=== PATIENT | female | born 1960 | race Caucasian/White ===

== ENCOUNTER 2018-06-10 17:07 | Inpatient (IN) | payer BC ==
[2018-06-10] MEDS ORDERED: LORazepam 2 MG/ML INJ IVP ONE (17:29)
--- NOTE | 2018-06-10 17:32 | EDPHY ---
General - History Smoking Status: Never smoked Time Seen by Provider: 06/10/18 17:29 Narrative: CHIEF COMPLAINT: Shortness of breath, chest pain and panic attacks HISTORY OF PRESENT ILLNESS: Patient presents private vehicle with her spouse with complaints of shortness of breath, chest pressure, panic attacks. Shortness of breath started when they landed here on Monday from a flight from [place]. She felt an increase in some baseline shortness of breath. She associates this with some chest pressure this worse with exertion at times. Other times it independent of exertion. The pain can radiate through to the back. It is described as a pressure and becomes worse with inspiration. No pressure at this time. She does have shortness of breath at this time. This seems to worsen with ambulation. She reports that she can walk no more than a block before having to slow down. She has no headache. She has no erythema edema or pain of the extremities. She has been feeling very anxious and "having panic attacks." She is not certain if these are related. She has no previous coronary artery disease does have hypertension on no medication. No other associated complaints or modifying factors REVIEW OF SYSTEMS: 10 systems were reviewed and negative with the exception of the elements mentioned in the history of present illness. PCP: Located [place] [facility]: [facility] in [place] PAST MEDICAL HISTORY: "Vestibular disease," hypertension PAST SURGICAL HISTORY: Hysterectomy oophorectomy, C-sections x2, breast biopsy SOCIAL HISTORY: Occasional smoker high school. No drug or alcohol use. Lives independently with her spouse and [place]. FAMILY HISTORY: Noncontributory EXAMINATION: General Appearance: Alert, no distress. Tearful but consolable. Pacing in the room. Head: normocephalic, atraumatic Eyes: Pupils equal and round, no conjunctival pallor or injection ENT, Mouth: Mucous membranes moist Neck: Normal inspection, supple, non-tender Respiratory: Lungs are clear to auscultation. No wheeze, rhonchi or crackles Cardiovascular: Tachycardic rate. Regular rhythm. No Gastrointestinal: Abdomen is soft and nontender Back: non-tender, no bony abnormalities Neurological: GCS 15. A&O, nonfocal, normal gait Skin: Warm and dry, no rash Extremities: Nontender, no pedal edema Psychiatric: Anxious and fidgeting. DIFFERENTIAL DIAGNOSES: Including but not limited to anxiety, shortness of breath, pneumonia, PE, pleurisy, pleural effusion, HAPE MDM: 5:30 p.m. Shortness of breath, chest pressure and feeling anxious at times. Symptoms seem to be independent of 1 another at times, and anxiety seems to be compound by her symptoms as well. She has some pressure and shortness of breath at this time. She is intermittently tachycardic, but she is not hypoxemic. She is in no acute distress. She is tearful but consolable. I have ordered cardiac workup and IV Ativan. I have also ordered a D-dimer given that she has recently flown here and does have some chest pressure, pleuritic pain and slightly tachycardic. Cannot rule her out by perc criteria, but I feel like PE is highly unlikely. She is in no acute distress. 6:00 p.m. Basic metabolic panel is within normal limits. Point of care troponin negative. EKG obtained and reviewed by Dr. Livingston. Chest x-ray and other laboratory studies pending. 6:05 p.m. Notified by RN. Hemoglobin is low, critical value of 5.4. Hematocrit is 19. Patient has been re-evaluated. Discussed further HPI with her. She denies any blood bright red blood in stools, dark tarry stools, bleeding her urine or bleeding from any source. She denies taking anticoagulants. She is status post hysterectomy. I performed a digital rectal exam and have sent fecal sample for occult testing. I have ordered packed red blood cells. Dr. Livingston notified. 6:30 p.m. Patient does have a positive Hemoccult test. 6:46 p.m. Case discussed with Dr. Barrios. She will admit the patient to her service. She is admitted stable condition. Dr. Barrios request an observation status, med surge bed. Type and screen pending. SUPERVISION: Patient was evaluated and examined in conjunction with my secondary supervising physician as documented. We have both examined the patient. EKG interpretation: Dr. Livingston CONSULTATION: Hospitalist admission (Humberto Pfeiffer) Medical Decision Making: Independent physician evaluation: I evaluated and participated in the management of the patient. I also evaluated the patient independently. My co-signature indicates that I have reviewed this chart and I agree with the findings and plan of care as documented. My personal H&P findings include: The patient presents the ED with complaints of exertional dyspnea and fatigue. [place] The patient denies any chest pain. She denies any fever, cough or congestion. She denies any symptoms of dysuria. General Appearance: Alert, no distress Eyes: Pupils equal and round no pallor or injection ENT, Mouth: Mucous membranes moist Respiratory: There are no retractions, lungs are clear to auscultation Cardiovascular: Regular rate and rhythm Gastrointestinal: Abdomen is soft and nontender, no masses, bowel sounds normal Neurological: A&O, normal motor function, normal sensory exam, normal cranial nerves Skin: Warm and dry, no rashes Musculoskeletal: Neck is supple nontender Extremities: symmetrical, full range of motion Psychiatric: Patient is oriented X 3, there is no agitation ED course: Database CBC demonstrates a sinus rhythm rate 97, nonspecific T-wave inversions are noted. Troponin is normal. Patient is hematocrit came back at 19. Patient denies any symptoms of melena however she is Hemoccult positive. Patient will be started on IV Protonix and transfused with 2 units of packed red blood cells. Consultation is made with the hospitalist service for admission. (Zachery Livingston) - Diagnostics Imaging Results: Imaging Impressions Chest X-Ray 06/10/18 17:29 Impression: Negative portable chest. Probable retrocardiac hiatal hernia. - Objective Vital Signs: Initial Vital Signs Temperature (C) 98.4 F 06/10/18 17:11 Heart Rate 109 H 06/10/18 17:11 Respiratory Rate 20 06/10/18 17:11 Blood Pressure 181/93 H 06/10/18 17:11 O2 Sat (%) 98 06/10/18 17:11 O2 Delivery Mode Room Air Allergies/Adverse Reactions: No Known Allergies Allergy (Unverified 06/10/18 17:10) Home Medications: Medication Instructions Recorded Irbesartan/Hydrochlorothiazide 2 tab PO DAILY 06/10/18 [Avalide 300-12.5 mg Tablet] Meclizine HCl [Meclizine HCl 12.5 12.5 mg PO DAILY PRN 06/10/18 mg (*)] diphenhydrAMINE [Benadryl 25 MG 25 mg PO DAILY PRN 06/10/18 (*)] Laboratory Results: Laboratory Results 06/10/18 17:45 06/10/18 17:45 06/10/18 06/10/18 06/10/18 18:30 18:15 17:48 WBC RBC Hgb Hct MCV MCH MCHC RDW Plt Count MPV Neut % (Auto) Lymph % (Auto) [place] % (Auto) Eos % (Auto) Baso % (Auto) Nucleat RBC Rel Count Absolute Neuts (auto) Absolute Lymphs (auto) Absolute Monos (auto) Absolute Eos (auto) Absolute Basos (auto) Absolute Nucleated RBC Immature Gran % Immature Gran # Platelet Estimate Polychromasia Hypochromasia Microcytic Cells Elliptocytes Smear Review By Sodium Potassium Chloride Carbon Dioxide Anion Gap BUN Creatinine Estimated GFR Glucose Calcium POC Troponin I 0.01 ng/mL ng/mL (0.00-0.08) NT-Pro-B Natriuret Pep Stool Occult Bld Scrn POSITIVE H (NEGATIVE) Patient ABO/Rh A POSITIVE Antibody Screen NEGATIVE Crossmatch IS Only See Detail 06/10/18 06/10/18 17:45 17:45 WBC 8.76 10^3/uL 10^3/uL (3.80-9.50) RBC 2.69 10^6/uL L 10^6/uL (4.18-5.33) Hgb 5.4 g/dL L* g/dL (12.6-16.3) Hct 19.1 % L % (38.0-47.0) MCV 71.0 fL L fL (81.5-99.8) MCH 20.1 pg L pg (27.9-34.1) MCHC 28.3 g/dL L g/dL (32.4-36.7) RDW 17.3 % H % (11.5-15.2) Plt Count 334 10^3/uL 10^3/uL (150-400) MPV 9.8 fL fL (8.7-11.7) Neut % (Auto) 72.1 % % (39.3-74.2) Lymph % (Auto) 22.0 % % (15.0-45.0) [place] % (Auto) 4.2 % L % (4.5-13.0) Eos % (Auto) 0.7 % % (0.6-7.6) Baso % (Auto) 0.5 % % (0.3-1.7) Nucleat RBC Rel Count 0.3 % H % (0.0-0.2) Absolute Neuts (auto) 6.32 10^3/uL 10^3/uL (1.70-6.50) Absolute Lymphs (auto) 1.93 10^3/uL 10^3/uL (1.00-3.00) Absolute Monos (auto) 0.37 10^3/uL 10^3/uL (0.30-0.80) Absolute Eos (auto) 0.06 10^3/uL 10^3/uL (0.03-0.40) Absolute Basos (auto) 0.04 10^3/uL 10^3/uL (0.02-0.10) Absolute Nucleated RBC 0.03 10^3/uL H 10^3/uL (0-0.01) Immature Gran % 0.5 % % (0.0-1.1) Immature Gran # 0.04 10^3/uL 10^3/uL (0.00-0.10) Platelet Estimate ADEQUATE (ADEQ) Polychromasia 2+ H Hypochromasia 3+ H Microcytic Cells 2+ H Elliptocytes 1+ H Smear Review By Pending Sodium 140 mEq/L mEq/L (135-145) Potassium 4.0 mEq/L mEq/L (3.3-5.0) Chloride 105 mEq/L mEq/L (97-110) Carbon Dioxide 25 mEq/l mEq/l (22-31) Anion Gap 10 mEq/L mEq/L (6-14) BUN 14 mg/dL mg/dL (7-23) Creatinine 0.7 mg/dL mg/dL (0.6-1.0) Estimated GFR > 60 Glucose 132 mg/dL H mg/dL (70-100) Calcium 9.1 mg/dL mg/dL (8.5-10.4) POC Troponin I NT-Pro-B Natriuret Pep 255 pg/mL H pg/mL (0-125) Stool Occult Bld Scrn Patient ABO/Rh Antibody Screen Crossmatch IS Only Medications Given: Discontinued Medications Sodium Chloride (Ns) 1,000 mls @ 0 mls/hr IV EDNOW ONE; Wide Open PRN Reason: Protocol Stop: 06/10/18 17:38 Last Admin: 06/10/18 17:41 Dose: 1,000 mls Lorazepam (Ativan Injection) 1 mg IVP EDNOW ONE Stop: 06/10/18 17:30 Last Admin: 06/10/18 17:42 Dose: 1 mg Point of Care Test Results: Chemistry 06/10/18 17:48 POC Troponin I 0.01 ng/mL ng/mL (0.00-0.08) Departure - Departure Disposition: [facility] Inpatient Acute Clinical Impression: Anemia Qualifiers: Anemia type: unspecified type Qualified Code(s): D64.9 - Anemia, unspecified GI bleed Qualifiers: GI bleed type/associated pathology: unspecified gastrointestinal hemorrhage type Qualified Code(s): K92.2 - Gastrointestinal hemorrhage, unspecified Condition: Good Referrals: NONE *PRIMARY CARE P,. [Primary Care Provider] - As per Instructions
[2018-06-10] MEDS ORDERED: NS 1,000 ML IV ONE (17:37)
[2018-06-10 18:07] LABS: PLATELET COUNT 334 10^3/uL (150-400)
--- NOTE | 2018-06-10 18:36 | CPEKG ---
Test Reason : OPEN Blood Pressure : / mmHG Vent. Rate : 097 BPM Atrial Rate : 098 BPM P-R Int : 154 ms QRS Dur : 095 ms QT Int : 373 ms P-R-T Axes : 021 -02 -15 degrees QTc Int : 474 ms Sinus rhythm LVH with secondary repolarization abnormality Confirmed by Zachery Livingston ([id number]) on 06/10/2018 6:35:32 PM Referred By: Confirmed By:Zachery Livingston
--- NOTE | 2018-06-10 20:24 | PDGENHP ---
History and Physical - Chief Complaint SOB - History of Present Illness 58 yo female with recent h/o dizziness, diagnosed with vestibular neuritis presents to ED with SOB and fatigue. She also endorses some vague chest pressure. She recently flew here from [place]. As soon as she landed in [place], she began to feel SOB. She also reports fatigue and dizziness. She has recently been prescribed Meclizine for this, no labs were done. She denies N/V , abdominal pain, melena or BRBPR. No weight loss, she actually complains of weight gain. No changes in her bowel habits. No family h/o GI malignancy. She recently took a cologuard stool test and it was negative. In the ED, her hgb was 5.4. She is receiving 2 units of prbc's and is admitted to the hospital for further management. History Information - Allergies/Home Medication List Allergies/Adverse Reactions: No Known Allergies Allergy (Unverified 06/10/18 17:10) Home Medications: Irbesartan/Hydrochlorothiazide [Avalide 150-12.5 mg Tablet] 2 tab PO DAILY 06/10 [Last Taken 06/10/18 08:00] Meclizine HCl [Meclizine HCl 12.5 mg (*)] 12.5 mg PO DAILY PRN 06/10/18 [Last Taken 06/10/18 07:00] diphenhydrAMINE [Benadryl 25 MG (*)] 25 mg PO DAILY PRN 06/10/18 [Last Taken 14:00] I have personally reviewed and updated: family history, medical history, social history, surgical history - Past Medical History Additional medical history: gestational diabetes - Surgical History Reports: hysterectomy - Family History Positive for: diabetes type II, CAD - Social History Smoking Status: Never smoked Alcohol Use: Occasionally Drug Use: None Additional social history: , at bedside. Visiting here from [place]. Review of Systems Review of Systems: ROS: 10pt was reviewed & negative except for what was stated in HPI & below Physical Exam Physical Exam: Temp Pulse Resp BP Pulse Ox 37.0 C 94 16 162/80 H 99 06/10/18 19:42 06/10/18 19:42 06/10/18 19:42 06/10/18 19:42 06/10/18 19:47 O2 (L/minute) 1 Constitutional: no apparent distress Eyes: PERRL Ears, Nose, Mouth, Throat: moist mucous membranes Cardiovascular: regular rate and rhythym, systolic murmur Respiratory: no respiratory distress, clear to auscultation Gastrointestinal: normoactive bowel sounds, soft, non-tender abdomen Skin: warm Musculoskeletal: full muscle strength Neurologic: AAOx3 Lab Data & Imaging Review 06/10/18 17:45 06/10/18 17:45 WBC 8.76 10^3/uL (3.80-9.50) 06/10/18 17:45 RBC 2.69 10^6/uL (4.18-5.33) L 06/10/18 17:45 Hgb 5.4 g/dL (12.6-16.3) L* 06/10/18 17:45 Hct 19.1 % (38.0-47.0) L 06/10/18 17:45 MCV 71.0 fL (81.5-99.8) L 06/10/18 17:45 MCH 20.1 pg (27.9-34.1) L 06/10/18 17:45 MCHC 28.3 g/dL (32.4-36.7) L 06/10/18 17:45 RDW 17.3 % (11.5-15.2) H 06/10/18 17:45 Plt Count 334 10^3/uL (150-400) 06/10/18 17:45 MPV 9.8 fL (8.7-11.7) 06/10/18 17:45 Neut % (Auto) 72.1 % (39.3-74.2) 06/10/18 17:45 Lymph % (Auto) 22.0 % (15.0-45.0) 06/10/18 17:45 [place] % (Auto) 4.2 % (4.5-13.0) L 06/10/18 17:45 Eos % (Auto) 0.7 % (0.6-7.6) 06/10/18 17:45 Baso % (Auto) 0.5 % (0.3-1.7) 06/10/18 17:45 Nucleat RBC Rel Count 0.3 % (0.0-0.2) H 06/10/18 17:45 Absolute Neuts (auto) 6.32 10^3/uL (1.70-6.50) 06/10/18 17:45 Absolute Lymphs (auto) 1.93 10^3/uL (1.00-3.00) 06/10/18 17:45 Absolute Monos (auto) 0.37 10^3/uL (0.30-0.80) 06/10/18 17:45 Absolute Eos (auto) 0.06 10^3/uL (0.03-0.40) 06/10/18 17:45 Absolute Basos (auto) 0.04 10^3/uL (0.02-0.10) 06/10/18 17:45 Absolute Nucleated RBC 0.03 10^3/uL (0-0.01) H 06/10/18 17:45 Immature Gran % 0.5 % (0.0-1.1) 06/10/18 17:45 Immature Gran # 0.04 10^3/uL (0.00-0.10) 06/10/18 17:45 Platelet Estimate ADEQUATE (ADEQ) 06/10/18 17:45 Polychromasia 2+ H 06/10/18 17:45 Hypochromasia 3+ H 06/10/18 17:45 Microcytic Cells 2+ H 06/10/18 17:45 Elliptocytes 1+ H 06/10/18 17:45 Sodium 140 mEq/L (135-145) 06/10/18 17:45 Potassium 4.0 mEq/L (3.3-5.0) 06/10/18 17:45 Chloride 105 mEq/L (97-110) 06/10/18 17:45 Carbon Dioxide 25 mEq/l (22-31) 06/10/18 17:45 Anion Gap 10 mEq/L (6-14) 06/10/18 17:45 BUN 14 mg/dL (7-23) 06/10/18 17:45 Creatinine 0.7 mg/dL (0.6-1.0) 06/10/18 17:45 Estimated GFR > 60 06/10/18 17:45 Glucose 132 mg/dL (70-100) H 06/10/18 17:45 Calcium 9.1 mg/dL (8.5-10.4) 06/10/18 17:45 POC Troponin I 0.01 ng/mL (0.00-0.08) 06/10/18 17:48 NT-Pro-B Natriuret Pep 255 pg/mL (0-125) H 06/10/18 17:45 Stool Occult Bld Scrn POSITIVE (NEGATIVE) H 06/10/18 18:15 Patient ABO/Rh A POSITIVE 06/10/18 18:30 Antibody Screen NEGATIVE 06/10/18 18:30 Crossmatch IS Only See Detail 06/10/18 18:30 Visualized and Interpreted Chest x-ray results: Yes Chest X-Ray results: no infiltrate Visualized and Interpreted EKG results: Yes EKG Interpretation: Positive for: normal sinsus rhythm Assessment & Plan Assessment: Iron deficiency anemia - Hemodynamically stable, though mildly tachycardic. No e/o active bleeding. No abdominal pain. Had recent neg cologuard test, but heme positive here. CXR reviewed, possible hiatal hernia, could be contributory. -2 units prbc's tonight, recheck h&h in am -will give IV iron load -PPI -needs egd/colonoscopy, discussed with GI. Since she has no symptoms of active GI bleed and this seems chronic, could get scoped back in [place] if remains stable and responds appropriately to transfusion. If there is e/o bleeding, Dr. Vega aware of case. SOB - suspect related to above. EKG non-ischemic. Trop neg. No hypoxemia and no pulmonary abnormalities on CXR. -trend trop Heart murmur - again, possibly related to anemia -check echo Hypertension - cont ARB/HCTZ Full code Dispo - obs, may be candidate for dc home in am if hgb corrects appropriately and remains hemodynamically stable with no e/o active bleeding. Needs close outpt f/u in [place] for EGD/C-scope
[2018-06-10] MEDS: PANTOPRAZOLE SODIUM 40 MG TAB PO SCH (21:16)
[2018-06-10] MEDS: LORazepam 0.5 MG TAB PO PRN (21:16)
[2018-06-11] MEDS: LORazepam 0.5 MG TAB PO PRN (06:04)
[2018-06-11] MEDS ORDERED: SODIUM FERRIC GLUCONAT/SUCROSE 125 MG in NS 100 ML IV ONE (08:00)
[2018-06-11] MEDS ORDERED: IRBESARTAN PO SCH (09:00)
[2018-06-11] MEDS ORDERED: HYDROCHLOROTHIAZIDE PO SCH (09:00)
[2018-06-11] MEDS ORDERED: [UNRECOGNIZED DRUG - OTHER] PO SCH (09:00)
[2018-06-11] MEDS: HYDROCHLOROTHIAZIDE 25 MG TAB PO SCH (09:03)
[2018-06-11] MEDS: PANTOPRAZOLE SODIUM 40 MG TAB PO SCH (09:03)
[2018-06-11] MEDS ORDERED: DIAZEPAM 5 MG/ML 1 ML SYR IVP PRN (10:13)
[2018-06-11] MEDS: IRBESARTAN 150 MG TAB PO SCH (10:45)
[2018-06-11] MEDS: LORazepam 2 MG/ML INJ IVP PRN ×3 (10:45→22:18)
[2018-06-11] MEDS ORDERED: PEG 3350/NA SULF,BICARB,CL/KCL (GAVILYTE-G) 4000 ML BTL PO ONE (13:35)
--- NOTE | 2018-06-11 13:54 | GCON ---
REFERRING PHYSICIAN: Marbella Barrios MD CHIEF COMPLAINT: For iron deficiency. Dear Dr. Barrios: Thank you very kindly for asking me to evaluate the patient in consultation for a chief complaint of iron-deficiency anemia. She presented to the ER after traveling from [place] to visit her daugh ter in [place] because she was very fatigued and short of breath. This has been worsening over the last year, but being in [place] at altitudes seemed to make this significantly worse. She tried andrew [employer] golf with her yesterday and was unable to complete it because she was so tired. Upon ad mission, she was noted to be profoundly anemic, with a hematocrit of 19.1 and an MCV of 71. She was also noted to be Hemoccult positive on a stool study. The patient denies any abdominal pain, nausea, vomiting, hematemesis, change in bowel habits or blood in her stool. She denies constipation or diarrhea. She has not had a documentation of a previous a nemia in her lifetime. There is no family history of anemia. She has been unaware of any vaginal bl eeding and has had a previous hysterectomy. I am asked to assist with further evaluation and managem ent. PAST MEDICAL HISTORY: Significant for hypertension, recent possible vertigo. PAST SURGICAL HISTORY: Two C sections and a hysterectomy, as well as a breast biopsy, turning out to be a benign lesion. FAMILY HISTORY: Negative for anemia or colon cancer. No history of stomach cancer. No history of p eptic ulcer disease. MEDICATIONS: On admission were meclizine, Benadryl, and irbesartan/hydrochlorothiazide. ALLERGIES: None known. 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 She is , has 2 c hildren, who are healthy. She lives in [place] and was vacationing in [place]. REVIEW OF SYSTEMS: GENERAL: She has felt somewhat fatigued and describes general malaise. HEENT: Has been dizzy. No headaches. No visual disturbances. No rhinorrhea. No epistaxis. No sore throa t. PULMONARY: Shortness of breath with exertion. She feels better at rest and better with oxygen. No cough. No chest pain. CARDIOVASCULAR: Denies palpitations or syncope. GI: Intermittent solid food dysphagia. No heartburn. No nausea, vomiting, hematemesis, melena, hematochezia, diarrhea, co nstipation, or abdominal pain. RHEUMATOLOGIC: No joint pain, swelling, or deformity. ENDOCRINE: N o heat or cold intolerance. HEMATOLOGIC: No bruising or epistaxis. LYMPH: No adenopathy noted. D ERMATOLOGIC: No jaundice, rash, or bruising. PSYCHIATRIC: She has been noting some palpitations th at she has been attributing to anxiety and says she has been having panic attacks intermittently. PHYSICAL EXAM: VITAL SIGNS: Blood pressure is 150/76. Heart rate is 83. Respirations are 16. Oxy genation is 95% on 1 L nasal cannula. Temperature is 36.6. GENERAL: Pale female, in no acute distr ess. HEENT: Normocephalic, atraumatic. Oropharynx clear. Neck supple. No adenopathy. No oral th salazar. No scleral icterus. PULMONARY: Clear to auscultation bilaterally. CARDIOVASCULAR: Regular rate and rhythm, without murmur, rub, or gallop. GI: Abdomen is soft, nontender, nondistended. Abd omen is slightly obese. No organomegaly. No bruit. No tenderness, rebound, or guarding. No disten tion. RHEUMATOLOGIC: No joint pain, swelling, or deformity. DERMATOLOGIC: No rash or jaundice. S KIN: Pale. NEUROLOGIC: Alert to person, place, and time. Cranial nerves normal. Motor nonfocal. LABORATORY DATA: Database includes the following admission laboratories: White blood count is 8.7. Hematocrit is 19.1 with a hemoglobin of 5.4. Platelets are 334. After transfusion, her hematocrit i s 23.7. Sodium 140, potassium 4.0, chloride 105, bicarbonate 25. BUN is 14, creatinine 0.7, calcium 9.1. Iron is 21, with a ferritin of 3.8. Percent saturation is 4. TIBC is 558. Total bilirubin 0 .4. TSH is 2.1. Troponin is less than 0.012 on 2 occasions. Lactate is 552. Stool is positive for occult blood. IMPRESSION: 1. Symptomatic iron-deficiency anemia. 2. Fatigue. 3. Shortness of breath with dyspnea on exertion. 4. Stool is positive for occult blood. RECOMMENDATIONS: 1. Upper endoscopy with small-bowel biopsies. 2. [facility] bowel prep with colonoscopy tomorrow. 3. Transfuse to obtain a hematocrit greater than 25. 4. I have spoken with Christin Dillard, who is covering for the hospital service today regarding the car e plan, and she is in agreement. 5. Further recommendations to follow her endoscopy and colonoscopy. /[id number]/MODL
--- NOTE | 2018-06-11 13:56 | ASMTCMCOM ---
CM Note CM Note Notes: Pts case discussed w/ GONZALEZ Benz regarding d/c POC. Pt is a 58 y/o female admitted for anemia. Pt received 2 units of blood and pt has been given iron. Pt may have a GI work up. No therapies ordered at this time. Pt will d/c independent when medically stable. CM available for changes. Plan: Independent Date Signed: 06/11/2018 01:55 PM Electronically Signed By:TANNER Vigil
--- NOTE | 2018-06-11 14:53 | ECHO ---
[email or web address] [address] [address] Main: [phone] Fax: Transthoracic Echocardiogram Name: TRACY SIMMONS MR#: [id number] Study Date: 06/11/2018 Study Time: 09:44 AM Date of : 1960 Age: 58 year(s) Height: 162.6 cm (64 in.) Weight: 88.45 kg (195 lb.) BSA: 1.94 m2 Gender: Female Examination: Echo Indication: heart murmur Image Quality: Adequate Contrast: Requested by: Marbella Barrios BP: 165 mmHg/84 mmHg Heart Rate: Rhythm: Indication: heart murmur Procedure Staff Inspector Watch Parts: Melody Arcos [facility] Reading Physician: Gentry Minaya MD Requesting Provider: Conclusions: Mild concentric LV hypertrophy. Normal global systolic LV function. EF is 60 %. Mild mitral valve regurgitation is present. Trivial to mild tricuspid valve regurgitation. Right ventricular systolic pressure measures 33mmHg. Measurements: Chambers Valvular Assessment AV/MV Valvular Assessment TV/PV Normal Normal Normal Name Value Range Name Value Range Name Value Range Ao Tamara (MM): 3.0 cm (2.2 cm-3.7 AV Vmax: 1.79 m/s (1 m/s-1.7 TR Vmax: 2.40 mm/s ( - ) cm) m/s) TR PGmax: 23 mmHg ( - ) IVSd (2D): 1.2 cm (0.6 cm-1.1 AV maxP mmHg ( - ) syst. PAP: 33 mmHg ( - ) cm) LVOT Vmax: 0.76 m/s (0.7 m/s-1.1 PV Vmax: 1.28 m/s (0.6 m/s-0.9 LVDd (2D): 5.0 cm (3.9 cm-5.3 m/s) m/s) cm) AMANDA (Vmax): 1.3 cm2 ( - ) PV PGmax: 7 mmHg ( - ) LVDs (2D): 3.3 cm (2.1 cm-4 MV E Vmax: 0.92 m/s ( - ) cm) MV A Vmax: 1.10 m/s ( - ) LVPWd (2D): 1.0 cm ( - ) MV E/A: 0.84 ( - ) LVOTd 2.0 cm 2.0 cm mm LVEF (BP): 60 % (>=55 %) RVDd(2D): 3.3 cm (1.9 cm-3.8 cmmm) Continued Measurements: Chambers Valvular Assessment AV/MV Valvular Assessment TV/PV Name Value Name Value Name Value LADs Lon.9 cm MV DecTime: 127 m/s CVP (est.): 10 mmHg Patient: TRACY SIMMONS Study Date: 06/11/2018 Page 1 of 2 09:44 AM LA Area: 25.4 cm2 MV E' Septal: 0.06 m/s LA Volume: 81 ml MV E/E' Septal: 14.40 LA Volume Index: 41.8 ml/m2 MV E/E' Lateral: 10.80 TAPSE: 2.5 cm RA Area: 14.9 cm2 Additional Vessels Name Value Ao Ascendin.9 cm Findings: Left Ventricle: Normal size left ventricle. Mild concentric LV hypertrophy. Normal global systolic LV function. EF is 60 %. No regional wall motion abnormality. Normal diastolic LV function. Right Ventricle: Normal size right ventricle. Normal RV function. Left Atrium: The left atrium is mildly dilated. Right Atrium: The right atrium is normal in size. Mitral Valve: There is mild thickening of the mitral valve leaflets. Mild mitral valve regurgitation is present. No mitral stenosis is present. Aortic Valve: The aortic valve is tri-leaflet and functions normally. There is no aortic valve regurgitation. No aortic valve stenosis is present. Tricuspid Valve: The tricuspid valve is normal in appearance and function. Trivial to mild tricuspid valve regurgitation. Right ventricular systolic pressure measures 33mmHg. The pulmonary artery pressure is normal. Pulmonic Valve: Pulmonary valve not well visualized. There is no pulmonic regurgitation seen. Aorta: Normal size aortic root measuring 3.0 cm. Normal size ascending aorta measuring 2.9 cm. IVC: The IVC is dilated. There is greater mohan 50% respiratory excursion. Pericardium: No pericardial effusion. (No Signature Object) Patient: TRACY SIMMONS Study Date: 06/11/2018 Page 2 of 2 09:44 AM [id number]
[2018-06-11] MEDS ORDERED: PEG 3350/NA SULF,BICARB,CL/KCL (GAVILYTE-G) 4000 ML BTL PO SCH (18:00)
--- NOTE | 2018-06-11 21:33 | HOSPPROG ---
Hospitalist Progress Note Assessment/Plan: 58y female with c/o fatigue and SOB. First encounter, chart reviewed. D/W Dr Vega. #Iron deficiency anemia - Hemodynamically stable - No e/o active bleeding -+heme stool - No abdominal pain. -Had recent neg cologuard test -2 units prbc's -recheck H/H -IV iron load -PPI -needs egd/colonoscopy -discussed with GI. SOB - suspect related to above. -EKG non-ischemic. -Trop neg. -No hypoxemia and no pulmonary abnormalities on CXR. #Heart murmur - again, possibly related to anemia -echo pending #Hypertension - cont ARB/HCTZ #Anxiety -order ativan/valium Full code Dispo change to inpt status requires further workup Subjective: Feeling better. Still a ittle SOB. Objective: Vital Signs Temp Pulse Resp BP Pulse Ox 36.6 C 87 18 145/88 H 93 06/11/18 20:00 06/11/18 20:00 06/11/18 20:00 06/11/18 20:00 06/11/18 20:00 Laboratory Results 06/11/18 10:17 06/10/18 06/11/18 06/12/18 05:59 05:59 05:59 Intake Total 1100 1210 Output Total 2900 Balance 1100 -1690 - Physical Exam Constitutional: appears nourished, not in pain, obese Eyes: PERRL, anicteric sclera, EOMI Ears, Nose, Mouth, Throat: moist mucous membranes, hearing normal, ears appear normal Cardiovascular: regular rate and rhythym, No JVD, No edema Respiratory: no respiratory distress, no rales or rhonchi, reduced air movement Gastrointestinal: normoactive bowel sounds, No tenderness, No ascites Skin: warm, normal color, No mottled Musculoskeletal: normal joint ROM, no joint effusions, generalized weakness Neurologic: AAOx3 Psychiatric: interacting appropriately, not encephalopathic, anxious ICD10 Worksheet Patient Problems: Problems Problem Status Onset Anemia Acute GI bleed Acute
[2018-06-12 05:08] LABS: PLATELET COUNT 264 10^3/uL (150-400)
--- NOTE | 2018-06-12 07:34 | PDMN ---
Medical Necessity Medical necessity: MCG: M35 anemia, Iron deficiency or unspecified A-1 day: pt has received 2 units PRBC, cont. with fatigue, SOB, heart murmur noted, echo pend. HTN, anxiety, + heme stool, colonoscopy pend. per GI consult. H/H cont to monitor ( 5.4,19.1, 5.8,19.7, 7.2,23.7, 7.1,23.7) status changed to INPT 06/11/18 for ongoing med nec care, further eval and tx of anemia.
[2018-06-12] MEDS: LORazepam 2 MG/ML INJ IVP PRN (08:13)
[2018-06-12] MEDS: HYDROCHLOROTHIAZIDE 25 MG TAB PO SCH (11:18)
[2018-06-12] MEDS: PANTOPRAZOLE SODIUM 40 MG TAB PO SCH (11:19)
[2018-06-12] MEDS: IRBESARTAN 150 MG TAB PO SCH (11:19)
[2018-06-12] MEDS ORDERED: LR 1,000 ML IV ONE (13:14)
[2018-06-12] MEDS ORDERED: MIDAZOLAM 2 MG/2 ML VIAL IVP ONE (13:21)
--- NOTE | 2018-06-12 13:21 | PDANEPAE ---
ANE History of Present Illness 58 yo for egd/colonoscopy ANE Past Medical History - Cardiovascular History Hx Hypertension: Yes Hx Arrhythmias: No Hx Chest Pain: No Hx Coronary Artery / Peripheral Vascular Disease: No Hx CHF / Valvular Disease: No Hx Palpitations: No - Pulmonary History Hx COPD: No Hx Asthma/Reactive Airway Disease: No Hx Recent Upper Respiratory Infection: No Hx Oxygen in Use at Home: No Hx Sleep Apnea: No Sleep Apnea Screening Result - Last Documented: Negative - Endocrine History Hx Diabetes: No ANE Review of Systems Review of Systems: - Exercise capacity METS (RN): 4 METS ANE Patient History - Allergies Allergies/Adverse Reactions: No Known Allergies Allergy (Unverified 06/10/18 17:10) - Home Medications Home Medications: Irbesartan/Hydrochlorothiazide [Avalide 150-12.5 mg Tablet] 2 tab PO DAILY 06/10 [Last Taken 06/10/18 08:00] Meclizine HCl [Meclizine HCl 12.5 mg (*)] 12.5 mg PO DAILY PRN 06/10/18 [Last Taken 06/10/18 07:00] diphenhydrAMINE [Benadryl 25 MG (*)] 25 mg PO DAILY PRN 06/10/18 [Last Taken 14:00] - NPO status NPO Since - Liquids (Date): 06/12/18 NPO Since - Liquids (Time): 10:00 NPO Since - Solids (Date): 06/11/18 NPO Since - Solids (Time): 23:59 - Anes Hx Anes Hx: no prior problems - Smoking Hx Smoking Status: Never smoked - Alcohol Use Alcohol Use: Occasionally ANE Labs/Vital Signs - Labs Result Diagrams: 06/12/18 04:32 06/12/18 04:32 - Vital Signs Blood Pressure: 153/88 Heart Rate: 84 Respiratory Rate: 16 O2 Sat (%): 91 Height: 5 ft 4 in Weight: 88.451 kg ANE Anesthesia Plan Anesthesia Plan: MAC
[2018-06-12] MEDS ORDERED: PROPOFOL/EMULSION 500 MG/50 ML BOTTLE IV ONE ×2 (13:25→13:59)
--- NOTE | 2018-06-12 13:51 | GIREPORT ---
[facility] Surgical Services - Endoscopy Department Patient Name: Pascale Guerrero Procedure Date: 06/12/2018 1:31 PM Patient Type: Inpatient Attending MD/ ER Physician: Nehemiah Vega MD Procedure: Upper GI endoscopy Indications: Iron deficiency anemia Providers: Nehemiah Vega MD Medicines: Propofol per Anesthesia Complications: No immediate complications. Description of Procedure: After obtaining informed consent, the endoscope was passed under direct vision. Throughout the procedure, the patient's blood pressure, pulse, and oxygen saturations were monitored continuously. The Endoscope was intro duced through the mouth, and advanced to the second part of duodenum. The [facility] er GI endoscopy was accomplished without difficulty. The patient tolerated th e procedure well. Findings: A non-obstructing Schatzki ring was found at the gastroesophageal junct ion. A medium-sized hiatal hernia was present. A few localized, small non-bleeding erosions were found in the gastric fundus. There were no stigmata of recent bleeding. The duodenal bulb, first portion of the duodenum and second portion of the duodenum were normal. Biopsies for histology were taken with a cold for ceps for evaluation of celiac disease. Estimated Blood Loss: Estimated blood loss: none. Post Op Diagnosis: - Non-obstructing Schatzki ring. - Medium-sized hiatal hernia. - Non-bleeding erosive gastropathy. These are linear and associated wit h the hiatal hernia and felt to be Tariq's erosions. They are mild and I do not feel endoscopically severe enough to cause the degree of iron deficienc y she anemia seen. - Normal duodenal bulb, first portion of the duodenum and second portio n of the duodenum. Biopsied. Recommendation: - Await pathology results. - Perform a colonoscopy today. - Return patient to hospital [facility] for ongoing care. - Advance diet as tolerated. - Thank you for allowing me to be involved in the care of your patient. Attending Participation: I personally performed the entire procedure without the assistance of a fellow, resident or surg ical assistant director of admissions. Nehemiah Vega MD Nehemiah Vega MD 06/12/2018 1:50:50 PM This report has been signed electronicallyDavid MD Gary Number of Addenda: 0 Note Initiated On: 06/12/2018 1:31 PM [email or web address]
--- NOTE | 2018-06-12 14:09 | GIREPORT ---
[facility] Surgical Services - Endoscopy Department Patient Name: Pascale Guerrero Procedure Date: 06/12/2018 1:50 PM Patient Type: Inpatient Attending MD/ ER Physician: Nehemiah Vega MD Procedure: Colonoscopy Indications: Iron deficiency anemia Providers: Nehemiah Vega MD Medicines: Propofol per Anesthesia Complications: No immediate complications. Description of Procedure: After obtaining informed consent, the scope was passed under direct vis ion. Throughout the procedure, the patient's blood pressure, pulse, and oxyg en saturations were monitored continuously. The Colonoscope with irrigatio n channel was introduced through the anus and advanced to 10 cm into the ileum. The colonoscopy was performed without difficulty. The patient tolerated the procedure well. The quality of the bowel preparation was excellent. The terminal ileum, ileocecal valve, appendiceal orifice, an d rectum were photographed. Findings: The perianal and digital rectal examinations were normal. Pertinent negatives include normal sphincter tone and no palpable rectal lesions. A 5 mm polyp was found in the descending colon. The polyp was sessile. The polyp was removed with a cold biopsy forceps. Resection and retrieval w ere complete. The terminal ileum appeared normal. The exam was otherwise without abnormality. Estimated Blood Loss: Estimated blood loss: none. Post Op Diagnosis: - One 5 mm polyp in the descending colon, removed with a cold biopsy forceps. Resected and retrieved. - The examined portion of the ileum was normal. - The examination was otherwise normal. - No cause for iron deficiency anemia discovered. Recommendation: - Await pathology results. - Repeat colonoscopy (date not yet determined) for surveillance based o n pathology results. - IV iron today and daily oral iron supplement BID at discharge. - AM CBC and if stable ok for discharge from my perspective. - Return patient to hospital [facility] for ongoing care. - Outpatient capsule endoscopy when she returns to her home in [facility]. - Advance diet as tolerated. - Thank you for allowing me to be involved in the care of your patient. Attending Participation: I personally performed the entire procedure without the assistance of a fellow, resident or surg ical processing assistant. Nehemiah Vega MD Nehemiah Vega MD 06/12/2018 2:08:45 PM This report has been signed electronicallyDavid MD Gary Number of Addenda: 0 Note Initiated On: 06/12/2018 1:50 PM Total Procedure Duration Time 0 hours 13 minutes 33 seconds [email or web address]
--- NOTE | 2018-06-12 14:22 | POSTANESTH ---
Post Anesthetic Evaluation Cardiovascular Status: Normal, Stable Respiratory Status: Normal, Stable Level of Consciousness/Mental Status: Can Participate in Eval Pain Control: Adequate, Prn Tx Ordered Nausea/Vomiting Control: Adequate, Prn Tx Ordered Complications Possibly Related to Anesthesia: None Noted
[2018-06-12] MEDS ORDERED: SODIUM FERRIC GLUCONAT/SUCROSE 125 MG in NS 100 ML IV ONE (14:24)
[2018-06-12] MEDS ORDERED: NALOXONE HCL 0.4 MG/ML INJ IVP PRN (14:55)
--- NOTE | 2018-06-12 15:41 | GDS ---
DISCHARGE DIAGNOSES: Iron deficiency anemia. CONSULTATIONS: Dr. Vega of gastroenterology. STUDIES AND PROCEDURES DONE: 1. EGD colonoscopy. 2. Echocardiogram. PHYSICAL EXAM: GENERAL: The patient is alert. VITAL SIGNS: Afebrile at 36.7, pulse is 71, respirato ry rate is 18, blood pressure is 124/53. She is saturating 99% on room air. I have seen and evaluat ed the patient on the day of discharge. HOSPITAL COURSE: The patient is a 58-year-old female who is visiting from [place]. She present ed to the emergency room with complaints of shortness of breath. She was evaluated and diagnosed wit h iron deficiency anemia. During this hospitalization, she received a blood transfusion as well as I V iron. She did receive a fiber design engineer's consult, who performed an EGD, as well as colonoscopy . No identifiable source of blood loss was noted. The patient is hemodynamically stable. She will be discharged from the hospital to follow up with further work[facility] [place] [facility] She has been instructed to see her primary care physician as soon as possible upon returning to [place]. She is in agreement with this plan. It is likely that she will require a capsule endoscopy as well as further evaluation of her iron deficiency anemia. The pending studies include biopsy results from her colonoscopy. I reviewed the patient's dispositio n with Dr. Vega from Gastroenterology, who is in agreement with this plan. She will be discharged a gain to follow-up in [place] with her primary care physician. TIME SPENT WITH PATIENT: I spent greater than 35 minutes in the care, coordination, and management o f this patient's disposition. /[id number]/[id number]
[2018-06-12 16:40] VITALS: BP 153/75
== END 2018-06-12 17:35 | disposition home or self-care (01) | DRG 812 ==
LOC: F3E 20:20 → OBSVTOIN 06-11 21:36
PROVIDERS: ADMIT Hospitalist; ATTEND Hospitalist
DX: D50.9 Iron deficiency anemia, unspecified (principal); I10 Essential (primary) hypertension; K44.9 Diaphragmatic hernia without obstruction or gangrene
CPT/HCPCS: 84484-PO; 96374; G0378; J1200; J2060; J2250; J2704; J2916; J3360; P9016